=== PATIENT | female | born 1990 | race African-American/Black ===

== ENCOUNTER 2016-07-21 19:59 | Outpatient (CLI) | payer MEDICAID ==
[~2016-07-21] VITALS: Ht 170.2 cm; Wt 99.5 kg
[~2016-07-21 19:59] MED LIST: NITR100C56 PO; PNV91TAB3 PO
[2016-07-21 20:37] VITALS: BP 128/83
== END 2016-07-21 21:45 | disposition home or self-care (01) ==
LOC: LDOP 19:59
PROVIDERS: ATTEND Obstetrics & Gynecology Maternal & Fetal Medicine
DX: O36.8130 Decreased fetal movements, third trimester, not applicable or unspecified (principal); O44.43 Low lying placenta NOS or without hemorrhage, third trimester; O62.9 Abnormality of forces of labor, unspecified; Z3A.36 36 weeks gestation of pregnancy
CPT/HCPCS: 59025; 76815; 81001; 87081; 87086; 87147; 99211; G0463

== ENCOUNTER 2016-08-02 08:57 | Observation (INO) | payer MEDICAID ==
[~2016-08-02] VITALS: Ht 170.2 cm; Wt 100.0 kg
[2016-08-02 09:01] VITALS: BP 114/59
== END 2016-08-02 12:51 | disposition home or self-care (01) ==
LOC: LDOP 08:57 → LDIP 10:26
PROVIDERS: ADMIT Obstetrics & Gynecology Maternal & Fetal Medicine; ATTEND Obstetrics & Gynecology Maternal & Fetal Medicine
DX: O26.893 Other specified pregnancy related conditions, third trimester (principal); Z3A.37 37 weeks gestation of pregnancy
CPT/HCPCS: 36415; 59025; 85460; G0378

== ENCOUNTER 2016-08-24 14:08 | Emergency (ER) | payer MEDICAID ==
[~2016-08-24] VITALS: Ht 170.2 cm; Wt 99.0 kg
[~2016-08-24 14:08] MED LIST changes: +IBUP-1222 PO; +OXYC-302 PO
[2016-08-24] MEDS ORDERED: KETOROLAC 30 MG/1 ML ONE (16:27)
[2016-08-24] MEDS ORDERED: KETOROLAC 30 MG/1 ML IM ONE (16:30)
[2016-08-24 17:12] VITALS: BP 115/52
== END 2016-08-24 17:15 | disposition home or self-care (01) ==
LOC: ED 15:27
DX: M25.511 Pain in right shoulder (principal); G43.909 Migraine, unspecified, not intractable, without status migrainosus; M79.621 Pain in right upper arm
CPT/HCPCS: 93971; 96372; 99284; J1885

== ENCOUNTER 2016-10-15 13:21 | Emergency (ER) | payer MEDICAID ==
[~2016-10-15] VITALS: Ht 170.2 cm; Wt 96.0 kg
[2016-10-15 13:33] VITALS: BP 100/66
[2016-10-15] MEDS ORDERED: HYDROmorphone 1 MG/ML, 1ML IM ONE (14:00)
[2016-10-15] MEDS ORDERED: KETOROLAC 30 MG/1 ML IM ONE (14:00)
[2016-10-15] MEDS ORDERED: KETOROLAC 30 MG/1 ML ONE (14:05)
[2016-10-15] MEDS ORDERED: HYDROmorphone 1 MG/ML, 1ML ONE (14:05)
== END 2016-10-15 15:32 | disposition home or self-care (01) ==
LOC: ED 15:11
DX: M54.42 Lumbago with sciatica, left side (principal); G89.29 Other chronic pain; M54.16 Radiculopathy, lumbar region; Z88.6 Allergy status to analgesic agent
CPT/HCPCS: 72110; 96372; 99284; J1170; J1885

== ENCOUNTER 2017-01-25 00:59 | Emergency (ER) | payer MEDICAID ==
[~2017-01-25] VITALS: Ht 170.2 cm; Wt 100.0 kg
[2017-01-25 02:27] VITALS: BP 111/74
== END 2017-01-25 02:28 | disposition home or self-care (01) ==
LOC: ED 02:13
DX: K08.89 Other specified disorders of teeth and supporting structures (principal)
CPT/HCPCS: 99283

== ENCOUNTER 2017-08-13 15:17 | Emergency (ER) | payer MEDICAID ==
[~2017-08-13] VITALS: Ht 170.2 cm; Wt 94.6 kg
[2017-08-13 15:19] VITALS: BP 112/72
[2017-08-13] MEDS ORDERED: DEXAMETHASONE 4 MG TABLET PO ONE (15:30)
[2017-08-13] MEDS ORDERED: DEXAMETHASONE 4 MG TABLET ONE (16:32)
== END 2017-08-13 16:44 | disposition home or self-care (01) ==
LOC: ED 16:35
DX: J02.8 Acute pharyngitis due to other specified organisms (principal); B97.89 Other viral agents as the cause of diseases classified elsewhere; Z88.6 Allergy status to analgesic agent; K08.89 Other specified disorders of teeth and supporting structures
CPT/HCPCS: 87081; 87880; 99284

== ENCOUNTER 2018-01-27 14:45 | Emergency (ER) | payer MEDICAID | END 2018-01-27 16:57 | disposition left against medical advice (07) | LOC: ED 16:51 | DX: N23 Unspecified renal colic (principal); Z53.21 Procedure and treatment not carried out due to patient leaving prior to being seen by health care provider ==

== ENCOUNTER → 2018-01-27 | Outpatient (CLI) | payer MEDICAID | END | disposition home or self-care (01) | LOC: RAD 15:36 | PROVIDERS: ATTEND Urology | DX: N20.0 Calculus of kidney (principal) | CPT/HCPCS: 74018 ==

== ENCOUNTER 2018-02-06 19:01 | Emergency (ER) | payer MEDICAID ==
[~2018-02-06] VITALS: Ht 170.2 cm; Wt 95.5 kg
[2018-02-06] MEDS ORDERED: PHENAZOPYRIDINE 200 MG TABLET ONE (19:29)
[2018-02-06] MEDS ORDERED: KETOROLAC 30 MG/1 ML ONE (19:29)
[2018-02-06] MEDS ORDERED: PHENAZOPYRIDINE 200 MG TABLET PO ONE (19:30)
[2018-02-06] MEDS ORDERED: KETOROLAC 30 MG/1 ML IVPush ONE (19:30)
[2018-02-06] MEDS ORDERED: SODIUM CHLORIDE FLUSH 10ML SYR IVF ONE (19:30)
[2018-02-06] MEDS ORDERED: PHEN-418 PO (19:35)
[2018-02-06] MEDS ORDERED: OXYB5TAB7 PO (19:35)
[2018-02-06] MEDS ORDERED: OXYC-302 PO (19:35)
[2018-02-06] MEDS ORDERED: CIPR500T87 PO (19:35)
[2018-02-06 19:46] LABS: ALBUMIN 3.9 g/dL (3.4-5.0); ANION GAP 8 mmol/L (5-15); CALCIUM 8.7 mg/dL (8.5-10.1); CHLORIDE 109 mmol/L (98-107); CREATININE 0.93 mg/dL (0.55-1.02)
[2018-02-06 19:59] LABS: BASOPHILS # (AUTO) 0.03 x10^3/uL (0-0.1); BASOPHILS % (AUTO) 0 % (0-1); EOSINOPHILS % (AUTO) 0 % (1-7); LYMPHOCYTES # (AUTO) 1.06 x10^3/uL (1-3.4); LYMPHOCYTES % (AUTO) 10 % (22-44); MD NO; MEAN CORPUSCULAR HEMOGLOBIN 31.2 pg (27.0-34.8); MEAN CORPUSCULAR VOLUME 91.7 fL (80-100); MEAN PLATELET VOLUME 8.6 fL (7.4-10.4); MONOCYTES # (AUTO) 0.06 x10^3/uL (0.2-0.8); MONOCYTES % (AUTO) 1 % (2-9); NEUTROPHILS % (AUTO) 90 % (42-75); PLATELET COUNT 282 x10^3/uL (130-400); RED BLOOD COUNT 4.85 x10^6/uL (3.82-5.3); RED CELL DISTRIBUTION WIDTH 13.3 % (9.6-15.2)
[2018-02-06 21:17] LABS: CULTURE INDICATED? YES; HCG UR SG 1.025 (1.003-1.030); MICROSCOPIC INDICATED
[2018-02-06] MEDS ORDERED: OXYcodone/APAP 5/325MG TABLET ONE ×2 (21:27→23:10)
[2018-02-06] MEDS ORDERED: OXYcodone/APAP 5/325MG TABLET PO ONE ×2 (21:30→22:30)
[2018-02-06] MEDS ORDERED: PROMETHAZINE 25 MG/ML, 1ML ONE (21:45)
[2018-02-06] MEDS ORDERED: CIPROFLOXACIN/PMX 400MG/200ML 200 ML IVPB ONE (22:00)
[2018-02-06] MEDS ORDERED: PROMETHAZINE 25 MG/ML, 1ML IM ONE (22:00)
[2018-02-06] MEDS ORDERED: CIPROFLOXACIN/PMX 400MG/200ML 200 ML ONE (22:09)
[2018-02-06] MEDS ORDERED: DIPHENHYDRAMINE 50 MG/ML, 1ML ONE (22:24)
[2018-02-06] MEDS ORDERED: DIPHENHYDRAMINE 50 MG/ML, 1ML IVPush ONE (22:30)
[2018-02-06 23:11] VITALS: BP 98/57
== END 2018-02-06 23:14 | disposition home or self-care (01) ==
LOC: ED 20:04
DX: N30.00 Acute cystitis without hematuria (principal); N23 Unspecified renal colic; G43.909 Migraine, unspecified, not intractable, without status migrainosus; Z90.89 Acquired absence of other organs; Z87.42 Personal history of other diseases of the female genital tract
CPT/HCPCS: 36415; 74176; 80048; 81001; 81025; 82040; 85025; 87086; 96365; 96372; 96375; 99284; J0744; J1200; J1885; J2550

== ENCOUNTER 2018-04-07 12:33 | Emergency (ER) | payer MEDICAID, OTHER ==
[~2018-04-07] VITALS: Ht 170.2 cm; Wt 87.8 kg
[~2018-04-07 12:33] MED LIST changes: +CIPR500T87 PO; +OXYB5TAB7 PO; +PHEN-418 PO
[2018-04-07 12:55] VITALS: BP 125/80
[2018-04-07] MEDS ORDERED: DIAZEPAM 5 MG TABLET ONE (13:38)
[2018-04-07] MEDS ORDERED: ONDANSETRON ODT 4 MG ONE (13:38)
[2018-04-07] MEDS ORDERED: KETOROLAC 30 MG/1 ML ONE (13:38)
[2018-04-07] MEDS ORDERED: DIAZEPAM 5 MG TABLET PO ONE (14:00)
[2018-04-07] MEDS ORDERED: KETOROLAC 30 MG/1 ML IM ONE (14:00)
[2018-04-07] MEDS ORDERED: ONDANSETRON ODT 4 MG PO ONE (14:00)
[2018-04-07 14:30] LABS: MICROSCOPIC AUTO
[2018-04-07 14:34] LABS: CULTURE INDICATED? YES
== END 2018-04-07 15:10 | disposition home or self-care (01) ==
LOC: ED 14:55
DX: S23.9XXA Sprain of unspecified parts of thorax, initial encounter (principal); S33.5XXA Sprain of ligaments of lumbar spine, initial encounter; F41.9 Anxiety disorder, unspecified; V49.69XA Unspecified car occupant injured in collision with other motor vehicles in traffic accident, initial encounter; Y93.89 Activity, other specified; Y92.89 Other specified places as the place of occurrence of the external cause; Y99.8 Other external cause status
CPT/HCPCS: 72072; 72110; 81001; 87086; 96372; 99284; J1885; Q0162

== ENCOUNTER 2018-08-02 14:18 | Emergency (ER) | payer MEDICAID ==
[~2018-08-02] VITALS: Ht 170.2 cm; Wt 84.3 kg
[~2018-08-02 14:18] MED LIST changes: +ACET325T14 PO; +CLINDAMYCIN GEL; +IBUP-1223 PO
[2018-08-02 14:22] VITALS: BP 109/72
--- NOTE | 2018-08-02 14:28 | NUR ---
PT AMBULATORY WITH STEADY GAIT TO ROOM
--- NOTE | 2018-08-02 14:37 | NUR ---
28 Y/O FEMALE PRESENTS TO ED WITH C/O LEFT LEG PAIN. " USUALLY MY SCIATICA IS JUST DOWN MY RIGHT LEG. NOW IT'S ON THE LEFT AND AROUND TO THE FRONT. A FEW MONTHS AGO I HAD SURGERY FOR KIDNEY STONES. BUT MY KIDNEY STONE WAS ON THE LEFT SIDE." NO C/O TRAUMA, SYNCOPE, CP, SOB.
[2018-08-02] MEDS ORDERED: KETOROLAC 30 MG/1 ML ONE (14:53)
[2018-08-02] MEDS ORDERED: KETOROLAC 30 MG/1 ML IM ONE (15:00)
--- NOTE | 2018-08-02 15:13 | NUR ---
Patient/Caregiver given discharge instructions and they have confirmed that they understand the instructions. Patient ambulatory with steady gait. PT LEFT WITH ALL PERSONAL BELONGINGS.
== END 2018-08-02 15:15 | disposition home or self-care (01) ==
LOC: ED 14:50
DX: M54.42 Lumbago with sciatica, left side (principal); G43.909 Migraine, unspecified, not intractable, without status migrainosus
CPT/HCPCS: 96372; 99283; J1885; J7512

== ENCOUNTER 2019-03-23 01:31 | Emergency (ER) | payer MEDICAID, OTHER ==
[~2019-03-23] VITALS: Ht 170.2 cm; Wt 80.0 kg
[~2019-03-23 01:31] MED LIST changes: +OXYB5TAB10 PO; -OXYB5TAB7 PO
--- NOTE | 2019-03-23 02:00 | NUR ---
NAUSEA X 4 DAYS "ZOFRAN ISN'T WORKING." LEFT LOWER BACK PAIN "I KNOW THAT IS FROM MY KIDNEY STONE. I AM HAVING ANXIETY BECAUSE I CAN'T KEEP ANYTHING DOWN BUT MY CHEST IS HURTING REALLY BAD". PER NOA NOTE
--- NOTE | 2019-03-23 02:03 | NUR ---
ERP AT BED SIDE
[2019-03-23] MEDS ORDERED: LORazepam 2 MG/ML, 1ML IVPush ONE (02:30)
[2019-03-23] MEDS ORDERED: SODIUM CHLORIDE 0.9% 1,000ML IVBOLUS ONE (02:30)
[2019-03-23] MEDS ORDERED: LORazepam 2 MG/ML, 1ML ONE (02:44)
[2019-03-23 02:54] LABS: BASOPHILS # (AUTO) 0.05 x10^3/uL (0-0.1); BASOPHILS % (AUTO) 1 % (0-1); EOSINOPHILS # (AUTO) 0.08 x10^3/uL (0-0.4); EOSINOPHILS % (AUTO) 1 % (1-7); LYMPHOCYTES # (AUTO) 2.33 x10^3/uL (1-3.4); LYMPHOCYTES % (AUTO) 31 % (22-44); MD NO; MEAN CORPUSCULAR HEMOGLOBIN 31.8 pg (27.0-34.8); MEAN CORPUSCULAR HGB CONC 33.7 g/dL (32.4-35.8); MEAN CORPUSCULAR VOLUME 94.2 fL (80-100); MEAN PLATELET VOLUME 8.4 fL (7.4-10.4); MONOCYTES # (AUTO) 0.53 x10^3/uL (0.2-0.8); MONOCYTES % (AUTO) 7 % (2-9); NEUTROPHILS # (AUTO) 4.64 x10^3/uL (1.8-6.8); NEUTROPHILS % (AUTO) 61 % (42-75); PLATELET COUNT 270 x10^3/uL (130-400); RED BLOOD COUNT 4.67 x10^6/uL (3.82-5.3); RED CELL DISTRIBUTION WIDTH 13.5 % (9.6-15.2)
[2019-03-23 03:03] LABS: ALANINE AMINOTRANSFERASE 26 U/L (12-78); ALBUMIN 4.5 g/dL (3.4-5.0); ANION GAP 6 mmol/L (5-15); CALCIUM 9.5 mg/dL (8.5-10.1); CHLORIDE 108 mmol/L (98-107); CREATININE 0.89 mg/dL (0.55-1.02)
[2019-03-23 03:07] LABS: ALKALINE PHOSPHATASE 81 U/L (45-117); BILIRUBIN,TOTAL 1.8 mg/dL (0.2-1.0); TOTAL PROTEIN 8.5 g/dL (6.4-8.2)
--- NOTE | 2019-03-23 03:21 | NUR ---
pt sleeping in [facility] at this time; kerry. call light is within reach at this time.
[2019-03-23 03:50] VITALS: BP 107/71
--- NOTE | 2019-03-23 03:52 | NUR ---
pt ambulates to restroom with steady gait. pt vss and updated in emr.
[2019-03-23 04:22] LABS: CULTURE INDICATED? YES; MICROSCOPIC AUTO
[2019-03-23] MEDS ORDERED: POTASSIUM CHLORIDE 20 MEQ TAB.ER.PRT ONE (04:50)
--- NOTE | 2019-03-23 04:57 | NUR ---
PT MEDICATED PER MAR AT THIS TIME.
[2019-03-23] MEDS ORDERED: POTASSIUM CHLORIDE 20 MEQ TAB.ER.PRT PO ONE (05:00)
--- NOTE | 2019-03-23 05:59 | NUR ---
PT D/C WITH D/C SUMMARY AND SCRIPTS. ALL QUESTIONS ANSWERED. PT AMBULATES TO REGISTRATION DESK WITH STEADY GAIT FOR D/C HOME. PT DENIES ANY OTHER NEEDS PERTAINING TO THIS VISIT. IV REMOVED WITH TIP INTACT.
== END 2019-03-23 06:02 | disposition home or self-care (01) ==
LOC: ED 04:15
DX: R11.2 Nausea with vomiting, unspecified (principal); F41.1 Generalized anxiety disorder; E86.0 Dehydration; F17.200 Nicotine dependence, unspecified, uncomplicated
CPT/HCPCS: 36415; 76770; 80053; 81001; 83690; 84703; 85025; 87086; 93005; 96361; 96374; 99284; J2060; J7030

== ENCOUNTER 2019-07-02 17:02 | Emergency (ER) | payer MEDICAID, OTHER ==
[~2019-07-02] VITALS: Ht 170.2 cm; Wt 79.6 kg
[2019-07-02 17:05] VITALS: BP 120/63
[2019-07-02] MEDS ORDERED: SODIUM CHLORIDE 0.9% 1,000ML IVBOLUS ONE (17:30)
[2019-07-02] MEDS ORDERED: SODIUM CHLORIDE FLUSH 10ML SYR IVF ONE (17:30)
[2019-07-02] MEDS ORDERED: methylPREDNISolone SOD SUCC 125 MG/2 ML IV ONE (17:30)
--- NOTE | 2019-07-02 17:35 | NUR ---
WAS DIAGNOSED WITH KIDNEY STONES IN DECEMBER. CO OF BILAT FLANK PAIN, PAINFUL URINATION, AND NASUEA. HAD A AT HOME TEST SHOW POSITIVE.
[2019-07-02 17:48] LABS: MICROSCOPIC NOT IND
[2019-07-02 17:54] LABS: BASOPHILS # (AUTO) 0.06 x10^3/uL (0-0.1); BASOPHILS % (AUTO) 1 % (0-1); EOSINOPHILS # (AUTO) 0.13 x10^3/uL (0-0.4); EOSINOPHILS % (AUTO) 1 % (1-7); LYMPHOCYTES # (AUTO) 2.81 x10^3/uL (1-3.4); LYMPHOCYTES % (AUTO) 27 % (22-44); MD NO; MEAN CORPUSCULAR HGB CONC 33.9 g/dL (32.4-35.8); MEAN CORPUSCULAR VOLUME 94.3 fL (80-100); MEAN PLATELET VOLUME 8.5 fL (7.4-10.4); MONOCYTES # (AUTO) 0.62 x10^3/uL (0.2-0.8); MONOCYTES % (AUTO) 6 % (2-9); NEUTROPHILS # (AUTO) 6.99 x10^3/uL (1.8-6.8); NEUTROPHILS % (AUTO) 66 % (42-75); PLATELET COUNT 244 x10^3/uL (130-400); RED BLOOD COUNT 4.17 x10^6/uL (3.82-5.3); RED CELL DISTRIBUTION WIDTH 13.2 % (9.6-15.2)
[2019-07-02 17:59] LABS: ALBUMIN 3.3 g/dL (3.4-5.0); ANION GAP 8 mmol/L (5-15); CALCIUM 8.7 mg/dL (8.5-10.1); CHLORIDE 109 mmol/L (98-107)
[2019-07-02 18:17] LABS: ALANINE AMINOTRANSFERASE 17 U/L (12-78); ALKALINE PHOSPHATASE 56 U/L (45-117); BILIRUBIN,TOTAL 0.4 mg/dL (0.2-1.0); CREATININE 0.75 mg/dL (0.55-1.02); TOTAL PROTEIN 6.8 g/dL (6.4-8.2)
[2019-07-02 18:26] LABS: CULTURE INDICATED? NO
--- NOTE | 2019-07-02 18:50 | NUR ---
REPORT FROM GLEN COTTON. ASSUMING CARE OF PT AT THIS TIME.
== END 2019-07-02 21:01 | disposition home or self-care (01) ==
LOC: ED 19:35
DX: O26.891 Other specified pregnancy related conditions, first trimester (principal); R10.32 Left lower quadrant pain; R30.0 Dysuria; Z90.89 Acquired absence of other organs; Z3A.01 Less than 8 weeks gestation of pregnancy
CPT/HCPCS: 36415; 51701; 76770; 76801; 80053; 81003; 84702; 85025; 86901; 99285; P9612

== ENCOUNTER 2019-09-20 11:58 | Emergency (ER) | payer MEDICAID ==
[~2019-09-20] VITALS: Ht 170.2 cm; Wt 82.5 kg
--- NOTE | 2019-09-20 20:26 | NUR ---
ROLL SKINNER: L&D CONTACTED IN REGARDS TO THIS PATIENT CHECKING IN. THEY STATED THE PT NEEDS TO BE SEEN IN THE ER AND THEY WILL COME DOWN TO ASSESS IF NECESSARY
[2019-09-20] MEDS ORDERED: ONDANSETRON ODT 4 MG ONE (21:16)
[2019-09-20 21:24] LABS: BASOPHILS # (AUTO) 0.06 x10^3/uL (0-0.1); BASOPHILS % (AUTO) 1 % (0-1); EOSINOPHILS # (AUTO) 0.14 x10^3/uL (0-0.4); EOSINOPHILS % (AUTO) 1 % (1-7); LYMPHOCYTES # (AUTO) 2.66 x10^3/uL (1-3.4); LYMPHOCYTES % (AUTO) 23 % (22-44); MD NO; MEAN CORPUSCULAR HEMOGLOBIN 31.7 pg (27.0-34.8); MEAN CORPUSCULAR HGB CONC 33.6 g/dL (32.4-35.8); MEAN CORPUSCULAR VOLUME 94.2 fL (80-100); MEAN PLATELET VOLUME 8.6 fL (7.4-10.4); MONOCYTES # (AUTO) 0.69 x10^3/uL (0.2-0.8); MONOCYTES % (AUTO) 6 % (2-9); NEUTROPHILS # (AUTO) 7.87 x10^3/uL (1.8-6.8); NEUTROPHILS % (AUTO) 69 % (42-75); PLATELET COUNT 231 x10^3/uL (130-400); RED BLOOD COUNT 4.29 x10^6/uL (3.82-5.3); RED CELL DISTRIBUTION WIDTH 12.9 % (9.6-15.2)
[2019-09-20 21:29] LABS: ANION GAP 5 mmol/L (5-15); CALCIUM 8.9 mg/dL (8.5-10.1); CHLORIDE 109 mmol/L (98-107)
[2019-09-20 21:30] LABS: MICROSCOPIC AUTO
[2019-09-20] MEDS ORDERED: ONDANSETRON ODT 4 MG PO ONE (21:30)
--- NOTE | 2019-09-20 22:16 | NUR ---
ALL RESULTS ARE BACK AT THIS TIME. CHART UP FOR RECHECK.
--- NOTE | 2019-09-20 22:49 | NUR ---
PT RESTING COMFORTABLY ON [place]. SHANE. PT STATES SHE FEELS BETTER.
--- NOTE | 2019-09-20 23:06 | NUR ---
REPORT GIVEN TO CASIMIRO COTTON.
--- NOTE | 2019-09-20 23:10 | NUR ---
REPORT RECEIVED FROM YURY LECHUGA. AWAITING DC PAPERWORK AT THIS TIME
[2019-09-20 23:52] VITALS: BP 91/57
== END 2019-09-21 00:04 ==
LOC: ED 11:58
DX: O20.0 Threatened abortion (principal); O47.02 False labor before 37 completed weeks of gestation, second trimester; G43.909 Migraine, unspecified, not intractable, without status migrainosus; Z3A.19 19 weeks gestation of pregnancy
CPT/HCPCS: 36415; 76805; 80048; 81001; 82040; 84702; 85025; 86901; 87086; 99284; Q0162

== ENCOUNTER 2019-12-22 17:36 | Observation (INO) | payer MEDICAID ==
[~2019-12-22] VITALS: Ht 170.2 cm; Wt 91.4 kg
[2019-12-22] MEDS ORDERED: FENTANYL PF 100 MCG/2ML ONE ×2 (17:59→19:09)
[2019-12-22 18:35] VITALS: BP 116/74
[2019-12-22 18:46] LABS: BASOPHILS % (AUTO) 0 % (0-1); EOSINOPHILS % (AUTO) 1 % (1-7); LYMPHOCYTES % (AUTO) 21 % (22-44); MEAN CORPUSCULAR HEMOGLOBIN 30.7 pg (27.0-34.8); MEAN CORPUSCULAR HGB CONC 33.3 g/dL (32.4-35.8); MEAN PLATELET VOLUME 8.7 fL (7.4-10.4); MONOCYTES % (AUTO) 7 % (2-9); NEUTROPHILS % (AUTO) 71 % (42-75); PLATELET COUNT 203 x10^3/uL (130-400); RED BLOOD COUNT 4.35 x10^6/uL (3.82-5.3); RED CELL DISTRIBUTION WIDTH 12.5 % (9.6-15.2)
[2019-12-22 18:47] LABS: MD NO
[2019-12-22 18:52] LABS: AMPHETAMINE SCREEN, URINE Negative (Negative); BARBITURATE SCREEN, URINE Negative (Negative); BENZODIAZEPINE SCREEN, URINE Negative (Negative); CANNABINOID SCREEN, URINE Negative (Negative); COCAINE SCREEN, URINE Negative (Negative); METHADONE SCREEN, URINE Negative (Negative); OPIATE SCREEN, URINE Negative (Negative)
[2019-12-22 18:53] LABS: ALBUMIN 2.9 g/dL (3.4-5.0); ANION GAP 9 mmol/L (5-15); CALCIUM 8.3 mg/dL (8.5-10.1); CHLORIDE 109 mmol/L (98-107)
[2019-12-22 18:56] LABS: ALANINE AMINOTRANSFERASE 19 U/L (12-78); ALKALINE PHOSPHATASE 127 U/L (45-117); BILIRUBIN,TOTAL 0.3 mg/dL (0.2-1.0); CREATININE 0.68 mg/dL (0.55-1.02); TOTAL PROTEIN 6.9 g/dL (6.4-8.2)
[2019-12-22 18:57] LABS: MICROSCOPIC INDICATED
[2019-12-22] MEDS ORDERED: FENTANYL PF 100 MCG/2ML IVPush ONE (19:30)
[2019-12-22] MEDS ORDERED: LACTATED RINGERS 1,000 ML IV SCH (19:30)
[2019-12-22] MEDS ORDERED: FENTANYL PF 100 MCG/2ML IV ONE (19:30)
[2019-12-22] MEDS ORDERED: TAMSULOSIN 0.4 MG CAP.ER.24H PO ONE (20:15)
== END 2019-12-22 22:05 | disposition home or self-care (01) ==
LOC: LDOP 17:36 → LDIP 19:00
PROVIDERS: ADMIT Obstetrics & Gynecology Maternal & Fetal Medicine; ATTEND Obstetrics & Gynecology Maternal & Fetal Medicine
DX: O26.893 Other specified pregnancy related conditions, third trimester (principal); R10.9 Unspecified abdominal pain; O36.8130 Decreased fetal movements, third trimester, not applicable or unspecified; O99.343 Other mental disorders complicating pregnancy, third trimester; F41.9 Anxiety disorder, unspecified; Z3A.31 31 weeks gestation of pregnancy; Z87.51 Personal history of pre-term labor; Z87.442 Personal history of urinary calculi; Z79.899 Other long term (current) drug therapy
CPT/HCPCS: 59025; 76770; 80053; 80307; 81001; 85025; 87086; 96360; 96361; 96374; 96376; G0378; J3010; J7120; 96375

== ENCOUNTER 2019-12-24 01:39 | Outpatient (CLI) | payer MEDICAID ==
[~2019-12-24] VITALS: Ht 170.2 cm; Wt 91.0 kg
[2019-12-24] MEDS ORDERED: TAMS-11 PO (10:48)
[2019-12-24] MEDS ORDERED: PREN1TAB60 PO (10:48)
[2019-12-24] MEDS ORDERED: ACET650S21 PO (10:48)
== END 2019-12-24 02:26 | disposition home or self-care (01) ==
LOC: LDOP 01:39
PROVIDERS: ATTEND Obstetrics & Gynecology Maternal & Fetal Medicine
DX: O26.833 Pregnancy related renal disease, third trimester (principal); Z20.828 Contact with and (suspected) exposure to other viral communicable diseases; N20.0 Calculus of kidney; Z3A.32 32 weeks gestation of pregnancy
CPT/HCPCS: 59025; 87635

== ENCOUNTER 2019-12-24 02:28 | Inpatient (IN) | payer MEDICAID ==
[~2019-12-24] VITALS: Ht 170.2 cm; Wt 92.0 kg
[2019-12-24] MEDS ORDERED: PROMETHAZINE 25 MG/ML, 1ML IM ONE (03:00)
[2019-12-24] MEDS ORDERED: FENTANYL PF 100 MCG/2ML IV ONE ×2 (03:00→04:00)
[2019-12-24] MEDS ORDERED: PROMETHAZINE 25 MG/ML, 1ML ONE (03:02)
[2019-12-24] MEDS ORDERED: FENTANYL PF 100 MCG/2ML ONE ×3 (03:03→09:51)
[2019-12-24 03:04] LABS: BASOPHILS % (AUTO) 1 % (0-1); EOSINOPHILS % (AUTO) 1 % (1-7); LYMPHOCYTES % (AUTO) 17 % (22-44); MEAN CORPUSCULAR HEMOGLOBIN 31.3 pg (27.0-34.8); MEAN CORPUSCULAR HGB CONC 34.2 g/dL (32.4-35.8); MEAN PLATELET VOLUME 8.6 fL (7.4-10.4); MONOCYTES % (AUTO) 7 % (2-9); NEUTROPHILS % (AUTO) 74 % (42-75); PLATELET COUNT 221 x10^3/uL (130-400); RED BLOOD COUNT 4.21 x10^6/uL (3.82-5.3); RED CELL DISTRIBUTION WIDTH 12.8 % (9.6-15.2)
[2019-12-24 03:05] LABS: MD NO
[2019-12-24 03:19] LABS: ANION GAP 9 mmol/L (5-15); CALCIUM 8.7 mg/dL (8.5-10.1); CHLORIDE 109 mmol/L (98-107)
[2019-12-24 03:20] LABS: CREATININE 0.77 mg/dL (0.55-1.02)
[2019-12-24] MEDS ORDERED: ONDANSETRON 2MG/ML, 2ML IVPush ONE (04:00)
[2019-12-24] MEDS ORDERED: ONDANSETRON 2MG/ML, 2ML ONE ×2 (04:01→08:05)
--- NOTE | 2019-12-24 04:06 | NUR ---
PRECEPTOR RN: PT WITH C/O PERSISTANT PAIN IN ABD, INCREASING. MD NOTIFIED AND ORDERS RECIEVED FOR MORE PAIN MEDS. PT MEDICATED FOR PAIN PER EMAR AND ALVA CARPENTER TOOK PT TO MRI FOR IMAGING.
[2019-12-24 04:28] LABS: MICROSCOPIC INDICATED
[2019-12-24 04:32] LABS: ALBUMIN 2.9 g/dL (3.4-5.0); BILIRUBIN, DIRECT 0.1 mg/dL (0.1-0.2)
[2019-12-24 04:34] LABS: BILIRUBIN,INDIRECT 0.3 mg/dL (0.0-2.0); BILIRUBIN,TOTAL 0.4 mg/dL (0.2-1.0)
--- NOTE | 2019-12-24 05:07 | NUR ---
PT STILL WITH COMPLAINTS OF SEVERE ABD PAIN
--- NOTE | 2019-12-24 05:15 | NUR ---
ER MD GLASGOW NOTIFIED OF PAIN. ORDERS RECIEVED AND PT MEDICATED FOR PAIN PER EMAR.
[2019-12-24] MEDS ORDERED: FENTANYL PF 100 MCG/2ML IVPush PRN (05:30)
[2019-12-24] MEDS ORDERED: MORPHINE SULFATE 4 MG/ML, 1ML ONE ×2 (06:13→07:50)
[2019-12-24] MEDS ORDERED: DIPHENHYDRAMINE 50 MG/ML, 1ML ONE (06:13)
[2019-12-24] MEDS ORDERED: DIPHENHYDRAMINE 50 MG/ML, 1ML IVPush ONE (06:30)
[2019-12-24] MEDS ORDERED: MORPHINE SULFATE 4 MG/ML, 1ML IVPush ONE ×2 (06:30→08:00)
--- NOTE | 2019-12-24 06:50 | NUR ---
PT RECHECKED BY DR MULLIGAN. PT TO BE ADMITTED. PT STRAIGHT CATH FOR URINE. TOLERATED PROCEDURE WELL.
--- NOTE | 2019-12-24 06:51 | NUR ---
REPORT FROM JACQUI
[2019-12-24 06:54] LABS: MICROSCOPIC AUTO
[2019-12-24] MEDS ORDERED: ROCURONIUM 10MG/ML,5ML ONE (08:05)
[2019-12-24] MEDS ORDERED: CEFAZOLIN 1,000 MG ONE (08:05)
[2019-12-24] MEDS ORDERED: PROPOFOL 10 MG/ML, 20ML ONE (08:05)
[2019-12-24] MEDS ORDERED: DEXAMETHASONE 4 MG/ML, 1ML ONE (08:05)
[2019-12-24] MEDS ORDERED: SUCCINYLCHOLINE 20 MG/ML, 10ML ONE (08:05)
[2019-12-24] MEDS ORDERED: TAMSULOSIN 0.4 MG CAP.ER.24H PO ONE (08:30)
[2019-12-24] MEDS ORDERED: HYDROmorphone 2 MG/ML, 1ML ONE (09:06)
[2019-12-24] MEDS ORDERED: HYDROmorphone 2 MG/ML, 1ML IVPush PRN ×2 (09:30→11:30)
[2019-12-24] MEDS ORDERED: CHLORHEXIDINE 15 ML UDC ONE (09:53)
[2019-12-24] MEDS ORDERED: CHLORHEXIDINE 15 ML UDC MM ONE (10:00)
[2019-12-24] MEDS ORDERED: FENTANYL PF 100 MCG/2ML IV PRN (10:30)
[2019-12-24] MEDS ORDERED: HYDROmorphone 1 MG/ML, 1ML INJ IVPush PRN (10:30)
[2019-12-24] MEDS ORDERED: ACET650S21 PO (10:48)
[2019-12-24] MEDS ORDERED: PREN1TAB60 PO (10:48)
[2019-12-24] MEDS ORDERED: TAMS-11 PO (10:48)
[2019-12-24] MEDS: LACTATED RINGERS 1,000 ML IV SCH ×2 (15:12→19:30)
[2019-12-25 02:17] VITALS: BP 92/56
[2019-12-25] MEDS: LACTATED RINGERS 1,000 ML IV SCH (03:30)
[2019-12-25] MEDS ORDERED: OXYcodone/APAP 5/325MG TABLET ONE (08:12)
[2019-12-25] MEDS ORDERED: OXYcodone/APAP 5/325MG TABLET PO PRN (08:30)
== END 2019-12-25 10:55 | disposition home or self-care (01) | DRG 818 ==
LOC: ED 04:38 → EDIP 07:48 → LDIP 08:39
PROVIDERS: ADMIT Obstetrics & Gynecology Maternal & Fetal Medicine; ATTEND Obstetrics & Gynecology Maternal & Fetal Medicine
PROC: 0T768DZ Dilation of Right Ureter with Intraluminal Device, Via Natural or Artificial Opening Endoscopic (ICD-10-PCS; 2019-12-24)
PROC: 0T9B70Z Drainage of Bladder with Drainage Device, Via Natural or Artificial Opening (ICD-10-PCS; 2019-12-24)
PROC: 0TC68ZZ Extirpation of Matter from Right Ureter, Via Natural or Artificial Opening Endoscopic (ICD-10-PCS; principal; 2019-12-24 09:30)
DX: O99.343 Other mental disorders complicating pregnancy, third trimester (principal); N13.2 Hydronephrosis with renal and ureteral calculous obstruction; F41.1 Generalized anxiety disorder; G43.909 Migraine, unspecified, not intractable, without status migrainosus; O99.353 Diseases of the nervous system complicating pregnancy, third trimester; Z3A.32 32 weeks gestation of pregnancy; Z87.442 Personal history of urinary calculi
CPT/HCPCS: 36415; 74181; 76770; 80048; 80076; 81001; 82360; 83690; 85025; 87086; 88300; 96372; 96374; 96375; 99285; G0378; J0690; J1100; J1170; J2405; J2550; J2704; J3010; C2617; J0330; J1200; J2270; J7120

== ENCOUNTER 2020-01-31 22:54 | Outpatient (CLI) | payer MEDICAID ==
[~2020-01-31] VITALS: Ht 170.2 cm; Wt 94.0 kg
[~2020-01-31 22:54] MED LIST changes: +ACET650S21 PO; +PREN1TAB60 PO; +TAMS-11 PO
[2020-02-01] MEDS ORDERED: MEPERIDINE/PF 50 MG/ML ONE (03:15)
[2020-02-01] MEDS ORDERED: MEPERIDINE/PF 50 MG/ML IM ONE (03:30)
== END 2020-02-01 04:09 | disposition home or self-care (01) ==
LOC: LDOP 22:54
PROVIDERS: ATTEND Obstetrics & Gynecology Maternal & Fetal Medicine
DX: O62.9 Abnormality of forces of labor, unspecified (principal); Z3A.37 37 weeks gestation of pregnancy
CPT/HCPCS: 59025; 96372; J2175

== ENCOUNTER 2020-02-05 17:22 | Inpatient (IN) | payer MEDICAID ==
[~2020-02-05] VITALS: Ht 170.2 cm; Wt 95.0 kg
[2020-02-05] MEDS: LACTATED RINGERS 1,000 ML IV SCH ×2 (17:45→18:45)
[2020-02-05] MEDS ORDERED: TERBUTALINE 1 MG/ML, 1ML SQ PRN (18:00)
[2020-02-05] MEDS ORDERED: CALCIUM CARBONATE 500 MG TAB.CHEW PO PRN (18:00)
[2020-02-05] MEDS ORDERED: ONDANSETRON 2MG/ML, 2ML IVPush PRN (18:00)
[2020-02-05] MEDS ORDERED: FENTANYL PF 100 MCG/2ML IV PRN (18:00)
[2020-02-05] MEDS ORDERED: TERBUTALINE 1 MG/ML, 1ML IVPush PRN (18:00)
[2020-02-05] MEDS ORDERED: D5%-LACTATED RINGERS 1,000 ML IV SCH ×2 (18:00)
[2020-02-05] MEDS ORDERED: OXYTOCIN 30U/ 0.9% NaCL 500ML 500 ML IV ONE ×2 (18:00)
[2020-02-05] MEDS ORDERED: METOCLOPRAMIDE 5 MG/ML, 2ML IVPush PRN (18:00)
[2020-02-05] MEDS ORDERED: FENTANYL PF 100 MCG/2ML IVPush PRN (18:00)
[2020-02-05] MEDS ORDERED: OXYTOCIN 30U/ 0.9% NaCL 500ML 500 ML ONE ×2 (18:04→18:05)
[2020-02-05] MEDS ORDERED: NEWBORN KIT ONE (18:04)
[2020-02-05] MEDS ORDERED: LIDOCAINE 1%, 20ML ONE (18:04)
[2020-02-05 18:11] LABS: BASOPHILS % (AUTO) 0 % (0-1); EOSINOPHILS % (AUTO) 1 % (1-7); LYMPHOCYTES % (AUTO) 18 % (22-44); MEAN CORPUSCULAR HEMOGLOBIN 30.6 pg (27.0-34.8); MEAN CORPUSCULAR HGB CONC 33.4 g/dL (32.4-35.8); MEAN PLATELET VOLUME 9.5 fL (7.4-10.4); MONOCYTES % (AUTO) 6 % (2-9); NEUTROPHILS % (AUTO) 75 % (42-75); PLATELET COUNT 198 x10^3/uL (130-400)
[2020-02-05 18:20] LABS: MD NO
[2020-02-05] MEDS ORDERED: BUPIVACAINE 0.25% ONE (18:40)
[2020-02-05] MEDS ORDERED: FENTANYL/BUPIV./NS/PF 250 ML EPIDCONT ONE (18:40)
[2020-02-05] MEDS ORDERED: LACTATED RINGERS 1,000 ML IV SCH (19:30)
[2020-02-05] MEDS ORDERED: EPHEDRINE 50 MG/ML, 1ML IVPush PRN (19:30)
[2020-02-05] MEDS ORDERED: LACTATED RINGERS 1,000 ML IVBOLUS PRN (19:30)
[2020-02-05] MEDS ORDERED: FENTANYL/BUPIV./NS/PF 250 ML EPIDCONT SCH (19:30)
[2020-02-05 19:45] VITALS: BP 109/64
[2020-02-05] MEDS ORDERED: OXYTOCIN 30U/ 0.9% NaCL 500ML 500 ML IV PRN (21:00)
[2020-02-05] MEDS ORDERED: MISOPROSTOL 200 MCG TABLET PO PRN (23:00)
[2020-02-05] MEDS ORDERED: BISACODYL 10 MG SUPP PR PRN (23:00)
[2020-02-05] MEDS ORDERED: METOCLOPRAMIDE 5 MG/ML, 2ML IV PRN (23:00)
[2020-02-05] MEDS ORDERED: GLYCERIN ADULT SUPP PR PRN (23:00)
[2020-02-05] MEDS ORDERED: CARBOPROST TROMETHAMINE 250 MCG/ML, 1ML IM PRN (23:00)
[2020-02-05] MEDS ORDERED: METHYLERGONOVINE 0.2 MG/ML IM PRN (23:00)
[2020-02-05] MEDS ORDERED: OXYTOCIN 30U/ 0.9% NaCL 500ML 500 ML IV SCH (23:00)
[2020-02-05] MEDS ORDERED: ACETAMINOPHEN 325 MG TABLET PO PRN ×2 (23:00)
[2020-02-05] MEDS ORDERED: ONDANSETRON 2MG/ML, 2ML IV PRN (23:00)
[2020-02-05] MEDS ORDERED: IBUPROFEN 800 MG TABLET PO PRN (23:00)
[2020-02-05] MEDS ORDERED: SIMETHICONE 80 MG CHEW TAB PO PRN (23:00)
[2020-02-06 01:16] VITALS: BP 106/72
[2020-02-06 04:06] VITALS: BP 101/52
[2020-02-06] MEDS: OXYcodone/APAP 5/325MG TABLET PO PRN ×3 (04:13→14:00)
[2020-02-06] MEDS: IBUPROFEN 600 MG TABLET PO PRN ×3 (04:13→23:57)
[2020-02-06 06:27] LABS: BASOPHILS % (AUTO) 1 % (0-1); EOSINOPHILS % (AUTO) 1 % (1-7); LYMPHOCYTES % (AUTO) 17 % (22-44); MEAN CORPUSCULAR HEMOGLOBIN 31.7 pg (27.0-34.8); MEAN CORPUSCULAR HGB CONC 34.3 g/dL (32.4-35.8); MEAN PLATELET VOLUME 9.5 fL (7.4-10.4); MONOCYTES % (AUTO) 9 % (2-9); NEUTROPHILS % (AUTO) 73 % (42-75); PLATELET COUNT 180 x10^3/uL (130-400); RED BLOOD COUNT 4.06 x10^6/uL (3.82-5.3); RED CELL DISTRIBUTION WIDTH 12.8 % (9.6-15.2)
[2020-02-06 06:33] LABS: MD NO
[2020-02-06 07:15] VITALS: BP 101/64
[2020-02-06] MEDS: DOCUSATE 100 MG CAPSULE PO PRN ×2 (08:31→23:57)
[2020-02-06] MEDS: PRENATAL VIT/IRON/FA 1 EACH TABLET PO SCH (08:31)
[2020-02-06 12:10] VITALS: BP 100/71
[2020-02-06] MEDS ORDERED: DIPH,PERTUSS(ACELL),TET VAC/PF NC IM-VACC ONE (17:00)
[2020-02-06 17:05] VITALS: BP 103/69
[2020-02-06] MEDS: OXYcodone IR 5MG TABLET PO PRN ×2 (18:47→23:58)
[2020-02-06 20:00] VITALS: BP 116/77
[2020-02-07] MEDS: IBUPROFEN 600 MG TABLET PO PRN (05:13)
[2020-02-07] MEDS: OXYcodone IR 5MG TABLET PO PRN (05:14)
[2020-02-07 07:40] VITALS: BP 94/57
[2020-02-07] MEDS: PRENATAL VIT/IRON/FA 1 EACH TABLET PO SCH (07:44)
[2020-02-07] MEDS: DOCUSATE 100 MG CAPSULE PO PRN (07:44)
[2020-02-07] MEDS: OXYcodone/APAP 5/325MG TABLET PO PRN (09:49)
[2020-02-07] MEDS ORDERED: OXYC-302 PO (10:37)
[2020-02-07] MEDS ORDERED: IBUP-1223 PO (10:37)
== END 2020-02-07 12:45 | disposition home or self-care (01) | DRG 807 ==
LOC: LDOP 17:22 → LDIP 17:42 → UNDOADMIN 17:42 → 2NW 02-06 00:58
PROVIDERS: ADMIT Obstetrics & Gynecology Maternal & Fetal Medicine; ATTEND Obstetrics & Gynecology Maternal & Fetal Medicine
PROC: 10E0XZZ Delivery of Products of Conception, External Approach (ICD-10-PCS; principal; 2020-02-05)
PROC: 3E0R3BZ Introduction of Anesthetic Agent into Spinal Canal, Percutaneous Approach (ICD-10-PCS; 2020-02-05)
PROC: 00HU33Z Insertion of Infusion Device into Spinal Canal, Percutaneous Approach (ICD-10-PCS; 2020-02-05)
PROC: 3E033VJ Introduction of Other Hormone into Peripheral Vein, Percutaneous Approach (ICD-10-PCS; 2020-02-05)
DX: O99.354 Diseases of the nervous system complicating childbirth (principal); Z37.0 Single live birth; Z3A.38 38 weeks gestation of pregnancy; Z87.442 Personal history of urinary calculi; Z88.1 Allergy status to other antibiotic agents; G43.909 Migraine, unspecified, not intractable, without status migrainosus; Z20.828 Contact with and (suspected) exposure to other viral communicable diseases
CPT/HCPCS: 36415; 85025; 86592; 86850; 86900; 87635; 90715; G0378; J2590; J7120

== ENCOUNTER 2020-08-04 14:45 | Emergency (ER) | payer MEDICAID ==
[~2020-08-04] VITALS: Ht 170.2 cm; Wt 87.9 kg
[~2020-08-04 14:45] MED LIST changes: -OXYC-302 PO; +OXYC1TAB14 PO
[2020-08-04] MEDS ORDERED: SODIUM CHLORIDE FLUSH 10ML SYR IVF ONE (15:30)
[2020-08-04] MEDS ORDERED: SODIUM CHLORIDE 0.9% 1,000ML IVBOLUS ONE (15:30)
[2020-08-04] MEDS ORDERED: ONDANSETRON 2MG/ML, 2ML IVPush ONE (15:30)
[2020-08-04 15:38] LABS: BASOPHILS % (AUTO) 1 % (0-1); EOSINOPHILS % (AUTO) 0 % (1-7); LYMPHOCYTES % (AUTO) 18 % (22-44); MEAN CORPUSCULAR HEMOGLOBIN 31.5 pg (27.0-34.8); MEAN CORPUSCULAR HGB CONC 34.2 g/dL (32.4-35.8); MEAN PLATELET VOLUME 8.5 fL (7.4-10.4); MONOCYTES % (AUTO) 5 % (2-9); NEUTROPHILS % (AUTO) 76 % (42-75); PLATELET COUNT 270 x10^3/uL (130-400); RED BLOOD COUNT 4.54 x10^6/uL (3.82-5.3); RED CELL DISTRIBUTION WIDTH 13.6 % (9.6-15.2)
[2020-08-04 15:40] LABS: MD NO
[2020-08-04 15:44] LABS: ALBUMIN 3.9 g/dL (3.4-5.0); ANION GAP 5 mmol/L (5-15); CALCIUM 8.7 mg/dL (8.5-10.1); CHLORIDE 112 mmol/L (98-107)
[2020-08-04 15:46] LABS: MICROSCOPIC NOT IND
[2020-08-04 15:51] LABS: ALANINE AMINOTRANSFERASE 23 U/L (12-78); ALKALINE PHOSPHATASE 76 U/L (45-117); BILIRUBIN,TOTAL 0.8 mg/dL (0.2-1.0); CREATININE 0.74 mg/dL (0.55-1.02); TOTAL PROTEIN 7.6 g/dL (6.4-8.2)
[2020-08-04] MEDS ORDERED: ONDANSETRON 2MG/ML, 2ML ONE (16:27)
--- NOTE | 2020-08-04 16:42 | NUR ---
PT A/O X4 WITH UNLABORED EQUAL BREATHS PT HAS C/O BILATERAL FLANK PAIN, ABD PAIN, NAUSEA AND "JUST WEAK". PT WORRIED IT COULD BE A KIDDNEY INFECTION. PT ON MONITOR WITH VSS. PT PROVIDED A BLANKET. PT MEDICATED PER MAY.
[2020-08-04 17:45] VITALS: BP 118/70
== END 2020-08-04 17:48 | disposition home or self-care (01) ==
LOC: ED 17:42
DX: N20.0 Calculus of kidney (principal)
CPT/HCPCS: 36415; 80053; 81003; 84703; 85025; 96361; 96374; 99283; J2405; J7030

== ENCOUNTER 2020-08-09 10:32 | Emergency (ER) | payer MEDICAID ==
[~2020-08-09] VITALS: Ht 170.2 cm; Wt 85.5 kg
--- NOTE | 2020-08-09 11:13 | NUR ---
PT HERE LUCILA, TOLD TO FOLLOW UP WITH UROLOGIST. UROLOGIST TOLD TO SEE PCP, NOW PCP IS REQUSTING TEST- 08/05 RESULTS POSITIVE. STILL FEELING POOR ALL OVER, ABD, BACK, & NECK PAIN. PCP CONCERNED ABOUT TUBAL .
--- NOTE | 2020-08-09 11:50 | NUR ---
US IN WITH PT AT THIS TIME
[2020-08-09 11:51] LABS: BASOPHILS % (AUTO) 1 % (0-1); EOSINOPHILS % (AUTO) 0 % (1-7); LYMPHOCYTES % (AUTO) 24 % (22-44); MEAN CORPUSCULAR HGB CONC 34.6 g/dL (32.4-35.8); MEAN PLATELET VOLUME 8.6 fL (7.4-10.4); MONOCYTES % (AUTO) 6 % (2-9); NEUTROPHILS % (AUTO) 70 % (42-75); PLATELET COUNT 254 x10^3/uL (130-400); RED CELL DISTRIBUTION WIDTH 13.6 % (9.6-15.2)
[2020-08-09 11:57] LABS: ALBUMIN 3.9 g/dL (3.4-5.0); ANION GAP 9 mmol/L (5-15); CALCIUM 8.8 mg/dL (8.5-10.1); CHLORIDE 111 mmol/L (98-107); CREATININE 0.68 mg/dL (0.55-1.02)
[2020-08-09 12:07] LABS: MICROSCOPIC INDICATED
--- NOTE | 2020-08-09 12:41 | NUR ---
PT RESTING IN [facility]. NAD
[2020-08-09 14:06] VITALS: BP 107/70
== END 2020-08-09 14:23 | disposition home or self-care (01) ==
LOC: ED 10:41
DX: O26.891 Other specified pregnancy related conditions, first trimester (principal); R10.2 Pelvic and perineal pain; G89.29 Other chronic pain; Z90.89 Acquired absence of other organs; Z3A.01 Less than 8 weeks gestation of pregnancy
CPT/HCPCS: 36415; 76770; 76801; 80048; 81001; 82040; 84702; 84703; 85025; 87086; 99285